=== PATIENT | male | born 1985 | race Caucasian/White ===

== ENCOUNTER 2021-09-08 14:17 | Emergency (ER) | payer MEDICAID ==
[~2021-09-08] VITALS: Ht 180.3 cm; Wt 116.1 kg
[2021-09-08 14:32] VITALS: BP 164/107
--- NOTE | 2021-09-08 14:40 | NUR ---
PT AMBULATED TO BED 08.
[2021-09-08] MEDS ORDERED: NACL 0.9% 1,000 ML IV SCH (14:50)
[2021-09-08] MEDS ORDERED: PANTOPRAZOLE 40 MG INJ VIAL IVP ONE (14:50)
[2021-09-08] MEDS ORDERED: ONDANSETRON 4 MG/2 ML VIAL IVP ONE (14:50)
--- NOTE | 2021-09-08 15:00 | NUR ---
20G IV ESTABLISHED TO LEFT AC, LABS DRAWN AND WALKED TO LAB.
[2021-09-08 15:31] LABS: BASOPHILS % (AUTO) 0.1 % (0.0-2.0); EOSINOPHILS % (AUTO) 0.3 % (0.0-4.0); HEMATOCRIT 27.8 % (36-52); HEMOGLOBIN 9.5 g/dL (12.0-18.0); LYMPHOCYTES % (AUTO) 17.9 % (20.5-51.1); MEAN CORPUSCULAR HEMOGLOBIN 31 pg (27-31); MEAN CORPUSCULAR HGB CONC 34 g/dL (33-37); MEAN CORPUSCULAR VOLUME 91.1 fL (80-94); MONOCYTES # (AUTO) 1.1 K/uL (0.8-1.0); NEUTROPHILS # (AUTO) 7.8 K/uL (1.8-7.7); NEUTROPHILS % (AUTO) 71.7 % (42.2-75.2); PLATELET COUNT (AUTO) 159 K/uL (140-450); RED BLOOD CELL COUNT(AUTO) 3.05 MIL/uL (4.20-6.10); RED CELL DISTRIBUTION WIDTH 15.8 % (11.6-13.7); WHITE BLOOD COUNT (AUTO) 10.9 K/uL (4.8-10.8)
--- NOTE | 2021-09-08 15:40 | NUR ---
36/M BIB SELF WITH C/O ABDOMINAL PAIN. PATIENT STATES HE HAS EXPERIENCED EPISODES OF HEMATEMESIS AND ABDOMINAL PAIN THE PAST TWO WEEKS, STATES HE WAS SEEN AT [facility] FOR SYMPTOMS AND WAS ADMITTED FOR GI BLEED AND EGD. STATING HE SIGNED OUT AMA, STATING "THEY WERE JUST GIVING ME PAIN MEDS AND NOT HELPING ME." PATIENT CAME IN TODAY AND STATES "I JUST WANT TO MAKE SURE IM OKAY." PATIENT STATES INTERMITTENT EPISODES OF ABDOMINAL PAIN AND DARK COLORED STOOL, DENIES NAUSEA/VOMITING AT THIS TIME. PATIENT DENIES CP, SOB, FEVER OR CHILLS.
[2021-09-08 15:46] LABS: APPEARANCE,URINE CLEAR (CLEAR); BILIRUBIN,URINE NEGATIVE (NEGATIVE); BLOOD, URINE NEGATIVE (NEGATIVE); COLOR,URINE YELLOW (YELLOW); LEUKOCYTE ESTERASE ,URINE NEGATIVE (NEGATIVE); NITRITE, URINE NEGATIVE (NEGATIVE); PH,URINE 6.5 (5.0-9.0); UGLUCOSE NEGATIVE (NEGATIVE)
[2021-09-08 15:47] LABS: ANION GAP 12.5 (8-16); CARBON DIOXIDE 27.8 mmol/L (21-32); CREATININE 0.8 mg/dL (0.6-1.3); POTASSIUM 3.3 mmol/L (3.5-5.1); TOTAL BILIRUBIN 0.3 mg/dL (0.0-1.0)
[2021-09-08] MEDS ORDERED: NACL 0.9% 1,000 ML IV ONE (17:00)
[2021-09-08] MEDS ORDERED: ONDA-188 SL (17:39)
[2021-09-08] MEDS ORDERED: OMEP-278 PO (17:39)
[2021-09-08 17:53] VITALS: BP 121/70
--- NOTE | 2021-09-08 17:54 | NUR ---
Patient discharged with v/s stable. Written and verbal after care instructions ABOUT ABNORMAL LFTs, GASTRITIS AND DEHYDRATION given and explained. Patient alert, oriented and verbalized understanding of instructions. Ambulatory with steady gait. All questions addressed prior to discharge. ID band removed. Patient advised to follow up with PMD. Rx of OMEPRAZOLE AND ZOFRAN given. Patient educated on indication of medication including possible reaction and side effects. Opportunity to ask questions provided and answered.
== END 2021-09-08 17:53 | disposition home or self-care (01) ==
LOC: MED 14:17
DX: K29.20 Alcoholic gastritis without bleeding (principal); D64.9 Anemia, unspecified; K92.0 Hematemesis; R42 Dizziness and giddiness; Z79.899 Other long term (current) drug therapy
CPT/HCPCS: 36415; 80053; 81003; 83690; 85025; 96361; 96374; 96375; 99284; C9113; J2405; J7030